=== PATIENT | female | born 1995 | race Caucasian/White ===

== ENCOUNTER 2017-01-19 18:19 | Emergency (ER) | payer OTHER ==
[2017-01-19 18:26] VITALS: BP 129/79; PULSE 89; TEMP 98.5; BMI 31.1
--- NOTE | 2017-01-19 19:47 | PDOC ---
History of Present Illness - General Chief Complaint: Rash Stated Complaint: RASH Time Seen by Provider: 01/19/17 19:36 History Source: Patient Exam Limitations: No Limitations - History of Present Illness Initial Comments: 01/19/17 19:41 21 YR female with rash to her arm and leg and back. pt noticed yesterday, woke up with the rash. Pt has no fever or chills. no medical history. Past History - Past Medical History Allergies/Adverse Reactions: Allergies Allergy/AdvReac Type Severity Reaction Status Date / Time Penicillins Allergy Rash Verified 01/19/17 18:24 Home Medications: Ambulatory Orders No Home Medications 0 dose .ROUTE UTDICT 04/12/13 Hydrocortisone 1% Cream [Hytone 1% Cream -] 1 applic TP TID #1 tube 01/19/17 Other medical history: DENIES. - Immunization History Immunization Up to Date: Yes - Psycho/Social/Smoking Cessation Hx Anxiety: No Suicidal Ideation: No Smoking Status: No Smoking History: Never smoked Number of Cigarettes Smoked Daily: 0 Hx Alcohol Use: No Drug/Substance Use Hx: No Substance Use Type: None *Physical Exam - Vital Signs Last Vital Signs Temp Pulse Resp BP Pulse Ox 98.5 F 89 18 129/79 99 01/19/17 18:23 01/19/17 18:23 01/19/17 18:23 01/19/17 18:23 01/19/17 18:23 - Physical Exam General Appearance: Yes: Nourished, Appropriately Dressed HEENT: positive: EOMI, JOE, Pharynx Normal Neck: positive: Supple. negative: Tender Respiratory/Chest: positive: Lungs Clear, Normal Breath Sounds Cardiovascular: positive: Regular Rhythm, Regular Rate Extremity: positive: Normal Capillary Refill, Normal Inspection, Normal Range of Motion Integumentary: positive: Normal Color, Dry, Warm, Other (left inner wrist with 1cm raised macuolopapular bite, middle of back with 2 1xcm raised maculopapular wheels left lower leg with 1cm raised maculopapular wheel) Neurologic: positive: Fully Oriented, Alert, Normal Mood/Affect, Normal Response , Motor Strength 5/5 Medical Decision Making - Medical Decision Making 01/20/17 08:41 cc: itchy rashes no fever or chills exam consistent with insect bites will prescribe hydrocortisone cream as directed pt understands to use insect spray with deet when outside. *DC/Admit/Observation/Transfer Diagnosis at time of Disposition: Insect bites Qualifiers: Encounter type: initial encounter Qualified Code(s): W57.XXXA - Bitten or stung by nonvenomous insect and other nonvenomous arthropods, initial encounter - Discharge Dispostion Disposition: HOME Condition at time of disposition: Good - Prescriptions Prescriptions: Hydrocortisone 1% Cream [Hytone 1% Cream -] 1 applic TP TID #1 tube - Referrals Referrals: Nydia Ross MD [Primary Care Provider] - - Patient Instructions Additional Instructions: follow up with the [employer] for follow up if symptoms worsen or persist take benadryl as directed for itching apply hydrocortisone cream to the bites 3-4 times a day (prescription strength sent to your pharmacy) cool showers to bathe
== END 2017-01-19 19:48 | disposition home or self-care (01) ==
LOC: JERFT 18:19
DX: S20.469A Insect bite (nonvenomous) of unspecified back wall of thorax, initial encounter (principal); S80.862A Insect bite (nonvenomous), left lower leg, initial encounter; S60.862A Insect bite (nonvenomous) of left wrist, initial encounter; W57.XXXA Bitten or stung by nonvenomous insect and other nonvenomous arthropods, initial encounter; Y93.89 Activity, other specified; Y92.89 Other specified places as the place of occurrence of the external cause
CPT/HCPCS: 99281-25